=== PATIENT | female | born 1985 | race Caucasian/White ===

== ENCOUNTER 2024-06-27 19:30 | Emergency (ER) | payer OTHER, SELFPAY ==
[2024-06-27 19:31] VITALS: BMI 24.5
[2024-06-27 19:33] VITALS: BP 152/116
[2024-06-27 19:51] LABS: % Basophils 0.8 % (0-2); % Eosinophils 0.6 % (0-6); % Immature Granulocytes 0.3 % (0-0.5); % Lymphocytes 35.3 % (20.5-51.1); % Monocytes 6.2 % (1.7-9.3); % Neutrophils 56.8 % (42.2-75.2); Absolute Basophils 0.1 10^3/uL (0-0.2); Absolute Lymphocytes 2.6 10^3/uL (1.2-3.4); Absolute Monocytes 0.5 10^3/uL (0.1-0.6); Absolute Neutrophils 4.1 10^3/uL (1.4-6.5); Hematocrit 33.8 % (37.0-47.0); Hemoglobin 11.6 g/dL (12.0-16.0); Mean Corp Hgb Conc. 34.3 g/dL (33.0-37.0); Mean Corpuscular Hgb 28.7 pg (27.0-31.0); Mean Corpuscular Volume 83.7 fL (81.0-99.0); Mean Platelet Volume 10.3 fL (7.4-10.4); Nucleated Red Blood Cells % 0 %; Platelet Count 279 10^3/uL (130-400); Red Blood Cell Count 4.04 10^6/uL (4.20-5.40); Red Cell Dist. Width 13.2 % (11.5-14.5); White Blood Cell Count 7.2 10^3/uL (4.8-10.8)
[2024-06-27 20:03] LABS: ALT (SGPT) 12 U/L (0-35); AST (SGOT) 21 U/L (14-36); Albumin 4.8 g/dl (3.5-5.0); Alkaline Phosphatase 82 U/L (38-126); Blood Urea Nitrogen 13 mg/dl (7-17); Calcium 9.9 mg/dl (8.4-10.2); Carbon Dioxide 25 mmol/L (22-30); Chloride 101 mmol/L (98-107); Glucose 96 mg/dl (70-99); Magnesium 1.9 mg/dl (1.6-2.3); Potassium 3.7 mmol/L (3.5-5.1); Sodium 136 mmol/L (135-145); Total Bilirubin 0.5 mg/dl (0.2-1.3); Total Protein 7.1 g/dl (6.3-8.2); eGFR > 60.00
[2024-06-27 20:15] LABS: Troponin I < 0.012 ng/ml
[2024-06-27 20:34] LABS: TSH 2.41 uIU/ml (0.47-4.68)
[2024-06-27 21:51] VITALS: BP 113/89
--- NOTE | 2024-06-27 22:01 | ED.GENMED ---
History of Present Illness
General
Chief Complaint: Heart Rate Problem
Source: patient
Exam Limitations: none
Time Seen by Provider: 06/27/24 21:51
Nursing documentation reviewed up to this point in time: agreed with
History of Present Illness
History of Present Illness:
39-year-old female with a past medical history of anxiety who presents to the emergency room for evaluation of palpitations. Patient reports onset of symptoms yesterday and she says that she had intermittent episodes throughout the day. She says
that today she was able to go to work but was having intermittent symptoms again and this afternoon when she was watching her son's exercise class she began to have more intense symptoms associated with dizziness and she says a caaqov-teze-gdvyv
heart rate in the 90s. She came to the emergency room to be evaluated. She has not had any syncope. She denies any chest pain. She says she might of had some mild shortness of breath earlier this evening but denies any dyspnea here. She denies
any GI issues. She denies any recent illness, cough, fever. She denies any vaginal bleeding, last menstrual period was roughly 10 days ago. She says she does not take any medications. She denies smoking history, drug or alcohol history. She
denies any family history of cardiac issues.
Review of Systems
Review of Systems
All Other Systems: ROS reviewed and negative except as documented in HPI and ROS
Constitutional: Denies fever
EENT: Denies sore throat or runny nose
Respiratory: Reports trouble breathing; Denies cough
Cardiac: Reports palpitations; Denies chest pain, diaphoresis or syncope
ABD/GI: Denies abdominal pain, nausea, vomiting or diarrhea
: Denies flank pain or bleeding
Musculoskeletal: Denies neck pain or back pain
Neurological: Reports dizzy; Denies headache
Phy Exam
Physical Exam
Physical Exam:
General: Awake, alert, oriented x3; no acute distress
Head: Normocephalic, atraumatic
Eyes: Conjunctiva normal, pupils equal round and reactive to light bilaterally
Throat: Airway intact, handling secretions
Neck: Trachea midline, supple without meningismus
Lungs: Clear to auscultation bilaterally, no wheezing, rales, rhonchi
Heart: Regular rate and rhythm, no murmurs, gallops, or rubs
Abd: Soft, non distended, nontender
Neuro: Cranial nerves grossly intact, speech fluid
Skin: no rash
Extremities: No edema in extremities, equal pulses in all extremities
Scores
Heart Failure Risk
Heart Failure Risk Score: Not Applicable
Heart Score for Chest Pain Patients
STEMI patient?: Not applicable
Withdrawal Assessment of Alcohol
Withdrawal Assessment Completed?: Not applicable
Course
Orders/Labs/Results
Orders:
Orders
06/27/24 19:36
Electrocardiogram (*1) Urgent
Reason for Study: Bradycardia / Tachycardia
06/27/24 19:37
EKG- Treatment ONCE
06/27/24 19:44
Complete Blood Count/With Diff Urgent
Comprehensive Metabolic Panel Urgent
HCG, Serum Qualitative Screen Urgent
Comment: ADD ON
Magnesium Urgent
TSH Urgent
Troponin I Urgent
06/27/24 21:52
Test Result ONCE
CR Chest - 2 Views Urgent
Comment:
Reason For Exam: sob
06/27/24 21:53
Add On- LAB Urgent
Tests Added?: HCG QUAL
06/27/24 22:03
D-Dimer Urgent
Abnormal Lab Results
06/27/24
19:44
RBC 4.04 L 10^6/uL
(4.20-5.40)
Hgb 11.6 L g/dL
(12.0-16.0)
Hct 33.8 L %
(37.0-47.0)
06/27/24 19:44
06/27/24 19:44
Vital Signs
Initial and Last Documented VS:
Initial Vital Signs
Temp Pulse Resp BP Pulse Ox
36.8 C 113 20 152/116 99
06/27/24 19:33 06/27/24 19:33 06/27/24 19:33 06/27/24 19:33 06/27/24 19:33
Last Documented Vital Signs
Temp Pulse Resp BP Pulse Ox
36.8 C 87 16 112/80 100
06/27/24 19:33 06/27/24 22:30 06/27/24 22:30 06/27/24 22:05 06/27/24 22:30
MDM/Problems Addressed
Differential Diagnosis Includes:
PACs/PVCs, atrial fibs/flutter, SVT, anxiety, PE, pericarditis/myocarditis, hyperthyroidism
MDM/Problems Addressed:
39-year-old female presents for evaluation of palpitations that started yesterday and have been intermittent since then; she reports this evening had a higher than usual heart rate in the 90s some mild shortness of breath and dizziness. No symptoms
here in the ER at present. Was hypertensive and tachycardic in triage, vital signs normalized by my assessment. Physical exam as above. EKG shows sinus rhythm with no ectopy, no Brugada, no delta wave, normal QTc. Plan to check labs including a
CBC and CMP, troponin, D-dimer. Will check thyroid studies. Check chest x-ray. Will monitor on telemetry and reassess after the above.
Initial labs reviewed: CBC shows marginal anemia otherwise unremarkable. CMP no clinically significant abnormalities. Troponin undetectable. Thyroid studies normal. D-dimer pending. Chest x-ray pending. Continue to monitor.
D-dimer negative. Chest x-ray reviewed by me shows no acute disease. Vitals have remained stable here in the emergency room. No events noted on monitor. No clear indication for admission to the hospital at this point in time; she is
nonsymptomatic at present, reports peak heart rate in the 90s on her Apple Watch while she was symptomatic. Will refer to cardiology for further follow-up and consideration of Holter monitor. Patient comfortable with this plan. Spoke about return
precautions all questions answered.
Chronic conditions affecting care:
Anxiety
Acute Exacerbation and/or Progression of Chronic Illness:
Acutely hypertensive improved without invention continue to monitor but no additional antihypertensive indicated at present�likely anxiety related
Acute Exacerbation and/or Progression of Chronic Illness: HTN
*Radiology
Radiology exam reviewed: preliminary read by ED provider
*Pulse Oximetry
Patient hypoxic: no
*EKG
Interpreted by ED Provider?: Yes
Heart Rate: 79
Rate: normal
Rhythm: sinus
[place]: normal axis
Interval: normal interval
QRS Pattern: normal QRS
Ischemia: no ischemia
*Critical Care Note
Total Time (30-74mins, 75-104mins- exclusive of procedures): Not Applicable
Data Reviewed
Review of Other/Old Records Reveals: Labs
Source: patient and spouse
ED Attending Note
-
Portions of this chart may have been created with voice recognition software.� Occasional wrong word or��sound alike� substitutions may have occurred due to the inherent limitations of voice recognition software.
Discharge Plan
Departure
Patient Disposition: Home (Routine Discharge)
Date of Disposition: 06/27/24
Time of Disposition: 23:01
Patient with high blood pressure during this ER visit?: Yes
Discharge Problem:
Heart palpitations, Hypertension
Instructions: Palpitations (DC)
Prescriptions:
No Action
[id number] fum-folic 1 EACH tablet
1 ea PO DAILY
bupropion HCl 150 MG tablet sustained-release 12 hr
150 mg PO DAILY 0RF
acetaminophen 325 MG tablet
650 mg PO Q4HPRN PRN (Reason: mild pain) 0RF
ibuprofen 600 MG tablet
600 mg PO Q4HPRN PRN (Reason: moderate pain/cramps) 0RF
enoxaparin 40 MG/0.4 ML syringe
40 mg SC QPM 0RF
Referrals:
Jama Lazo MD [Active] - Call in 1-3 days for appt
Adrianne Barnett CRNP [Family Provider] - Follow up in 5-7 days
Activity Restrictions/Additional Instructions:
Thank you for visiting the Emergency Department at [facility].
1. Please schedule a follow up appointment as directed. Call first thing tomorrow morning to make an appointment.
2. If indicated, please take your medications as instructed and indicated on discharge paperwork.
3. If any of your symptoms do not improve, or persist, or become more severe within 6-12 hours, please return to the emergency department for further care.
4. Please return to the emergency department if you develop a headache, neck pain/stiffness, fever greater than 100.4F, chest pain, shortness of breath, persistent nausea, vomiting, slurred speech, difficulty walking, numbness/tingling, weakness,
signs of infection or any other symptoms that are worrisome to you.
Please call [phone] if you have any questions.
Interventions
Interventions:
*Risk Screen - Suicide Last Done: 06/27/24 19:33
*General Assessment Last Done: 06/27/24 19:33
*Neglect/Abuse Screening Last Done: 06/27/24 19:33
ED- Fall Risk Assessment Last Done: 06/27/24 21:39
*ED COVID-19 Vaccine History Last Done: 06/27/24 21:39
ED- Cardiac Assessment Last Done: 06/27/24 21:39
ED- Pulmonary Assessment Last Done: 06/27/24 21:39
Discharge Date and Time
Print Language: BENGALI
[2024-06-27 22:05] VITALS: BP 112/80
[2024-06-27 22:23] LABS: HCG, Serum Qualitative Screen Negative
[2024-06-27 22:59] LABS: D-Dimer < 0.27 ug/mlFEU (0.00-0.50)
[2024-06-27 23:00] VITALS: BP 105/76
== END 2024-06-27 23:11 | disposition home or self-care (01) ==
LOC: EMR 19:30
PROVIDERS: EMERGENCY PHYSICIAN Emergency Medicine; FAMILY PHYSICIAN Nurse Practitioner Adult Health
DX: R00.2 Palpitations (principal); I10 Essential (primary) hypertension; F41.9 Anxiety disorder, unspecified
CPT/HCPCS: 99283; 71046; 80053; 83735; 84443; 84484; 84703; 85025; 85379; 93005

== ENCOUNTER → 2025-04-12 06:39 | Outpatient (REF) | payer OTHER, SELFPAY | LOC: PAVMRI 06:39 | PROVIDERS: ATTENDING PHYSICIAN Nurse Practitioner Adult Health | DX: G43.019 Migraine without aura, intractable, without status migrainosus (principal); Z80.8 Family history of malignant neoplasm of other organs or systems | CPT/HCPCS: 70551 ==

== ENCOUNTER 2025-07-27 06:02 | Emergency (ER) | payer OTHER, SELFPAY ==
[2025-07-27 06:05] VITALS: BP 126/82
--- NOTE | 2025-07-27 06:20 | ED.GENMED ---
History of Present Illness
General
Chief Complaint: Bowel Problem
Source: patient
Exam Limitations: none
Time Seen by Provider: 07/27/25 06:09
Nursing documentation reviewed up to this point in time: agreed with
History of Present Illness
History of Present Illness:
40-year-old female with a past medical history of migraines, anxiety, IBS who presents to the ER for evaluation of abdominal discomfort and constipation. Patient reports that she has been dealing with constipation x 8 days�she reports last bowel
movement was 8 days ago. She says that even before her last bowel movement she was having intermittent constipation and diarrhea. She says that because of her recent constipation she has been trying mewl-qaa-rpxzoci therapies including fiber
supplements and suppositories none of which have provided any relief. Last night took iltc-jid-cwkguhl laxative again and began to have nausea and says that she was vomiting throughout the evening. Came to the ER for evaluation. She still has
some mild nausea but no additional vomiting this morning. She reports abdominal discomfort which she says is intermittent crampy sensation. She denies any fever or chills. She has had reasonable appetite and p.o. intake she says. She denies any
prior surgeries in her abdomen. She said this morning she has associated headache that she says she is prone to migraines and this feels similar. She did take a dose of sumatriptan for headache prior to coming to the ER.
Review of Systems
Review of Systems
All Other Systems: ROS reviewed and negative except as documented in HPI and ROS
Constitutional: Denies fever
Respiratory: Denies trouble breathing
Cardiac: Denies chest pain
ABD/GI: Reports abdominal pain, nausea, vomiting and constipated
: Denies flank pain
Musculoskeletal: Denies neck pain or back pain
Neurological: Reports headache; Denies dizzy
Phy Exam
Physical Exam
Physical Exam:
General: Awake, alert, oriented x3; no acute distress
Head: Normocephalic, atraumatic
Eyes: Conjunctiva normal, sclera anicteric
Throat: Airway intact, handling secretions
Neck: Trachea midline, supple without meningismus
Lungs: Breathing comfortably without distress; no tachypnea or hypoxia
Heart: Regular rate
Abd: Normal and active bowel sounds; soft, non distended, mildly tender left lower quadrant
Neuro: Grossly intact
Skin: No rash noted
Extremities: Warm and well-perfused
Scores
Heart Failure Risk
Heart Failure Risk Score: Not Applicable
Heart Score for Chest Pain Patients
STEMI patient?: Not applicable
Withdrawal Assessment of Alcohol
Withdrawal Assessment Completed?: Not applicable
Course
Orders/Labs/Results
Orders:
Orders
07/27/25 06:19
CT Abd/pelvis W Iv Cont Urgent
Comment:
Reason For Exam: abd pain, constipation, vomiting
07/27/25 06:20
Test Result ONCE
07/27/25 06:24
0.9% Sodium Chloride 1000 ml [Nss] 1,000 ml IV BOLUS
07/27/25 06:27
Complete Blood Count/With Diff Urgent
Comprehensive Metabolic Panel Urgent
HCG, Serum Qualitative Screen Urgent
Magnesium Urgent
TSH Reflex To Free T4 Urgent
07/27/25 07:33
Enema- Treatment ONCE
Type: Soap Suds
07/27/25 09:26
Ondansetron Orally Disint [Zofran Odt (Orally Disintegrating)] 4 mg PO NOW STA
Abnormal Lab Results
07/27/25
06:27
RBC 4.05 L 10^6/uL
(4.20-5.40)
Hct 35.7 L %
(37.0-47.0)
Magnesium 2.4 H mg/dl
(1.6-2.3)
07/27/25 06:27
07/27/25 06:27
Vital Signs
Initial and Last Documented VS:
Initial Vital Signs
Temp Pulse Resp BP Pulse Ox
36.6 C 94 16 126/82 100
07/27/25 06:05 07/27/25 06:05 07/27/25 06:05 07/27/25 06:05 07/27/25 06:05
Last Documented Vital Signs
Temp Pulse Resp BP Pulse Ox
36.6 C 94 16 126/82 100
07/27/25 06:05 07/27/25 06:05 07/27/25 06:05 07/27/25 06:05 07/27/25 06:21
MDM/Problems Addressed
Differential Diagnosis Includes:
Constipation, IBS, bowel obstruction, electrolyte derangement, hypothyroidism
MDM/Problems Addressed:
40-year-old female presents to the ER for evaluation of constipation and abdominal discomfort�last bowel movement she says was over a week ago. Has tried different laxatives, fiber supplements, suppositories. Last night had some vomiting after
taking additional oral laxative. Came to the ER for assessment. Vitals and exam as above. Plan to check labs including a CBC and a CMP, TSH with reflex T4. Will check hCG. Will check CT abdomen pelvis to rule out signs of obstruction. Provide
IV fluids. Monitor closely reassess after the above.
Labs reviewed: CBC and CMP clinically significant abnormalities. Thyroid studies unremarkable. CT reviewed by me no obstruction noted�final radiology report pending. Plan to proceed with enema.
Patient was able to have a bowel movement after enema and reports relief after BM. Final radiology report reviewed shows constipation no other acute abnormalities. She does have some mild residual nausea was given Zofran. We talked about next
steps will plan to give magnesium citrate to use at home and advised her to increase fluid intake and fiber intake in her diet as well as add exercise to prevent constipation in the future. Provided GI referral for follow-up. She feels very
comfortable with this plan. All questions answered.
*Radiology
Radiology exam reviewed: radiology read reviewed
*Pulse Oximetry
SaO2: 100
Oxygen Mode of Delivery: Room air
Patient hypoxic: no (100%)
*Critical Care Note
Total Time (30-74mins, 75-104mins- exclusive of procedures): Not Applicable
Data Reviewed
Source: patient and records
ED Attending Note
-
Portions of this chart may have been created with voice recognition software.� Occasional wrong word or��sound alike� substitutions may have occurred due to the inherent limitations of voice recognition software.
Discharge Plan
Departure
Patient Disposition: Home (Routine Discharge)
Date of Disposition: 07/27/25
Time of Disposition: 09:28
Patient with high blood pressure during this ER visit?: No
Discharge Problem:
Constipation
Instructions: Constipation, Adult (DC)
Prescriptions:
New
ondansetron 4 mg tablet,disintegrating
4 mg PO TIDPRN PRN (Reason: nausea/vomiting) Qty: 10 0RF
No Action
vit 96-iron fum-folic 1 EACH tablet
1 ea PO DAILY
bupropion HCl 150 MG tablet sustained-release 12 hr
150 mg PO DAILY 0RF
acetaminophen 325 MG tablet
650 mg PO Q4HPRN PRN (Reason: mild pain) 0RF
ibuprofen 600 MG tablet
600 mg PO Q4HPRN PRN (Reason: moderate pain/cramps) 0RF
enoxaparin 40 MG/0.4 ML syringe
40 mg SC QPM 0RF
Referrals:
Shanda Colindres MD [Active, Gastroenterology] - Call in 1-3 days for appt
Activity Restrictions/Additional Instructions:
Thank you for visiting the Emergency Department at [facility].
1. Please schedule a follow up appointment as directed. Call first thing tomorrow morning to make an appointment.
2. If indicated, please take your medications as instructed and indicated on discharge paperwork.
3. If any of your symptoms do not improve, or persist, or become more severe within 6-12 hours, please return to the emergency department for further care.
4. Please return to the emergency department if you develop a headache, neck pain/stiffness, fever greater than 100.4F, chest pain, shortness of breath, persistent nausea, vomiting, slurred speech, difficulty walking, numbness/tingling, weakness,
signs of infection or any other symptoms that are worrisome to you.
Please call [phone] if you have any questions.
Interventions
Interventions:
*Risk Screen - Suicide Last Done: 07/27/25 06:05
*General Assessment Last Done: 07/27/25 06:05
*Neglect/Abuse Screening Last Done: 07/27/25 06:05
GZ-Gjwrnw-Rzhavevczk Assessment Last Done: 07/27/25 06:42
Discharge Date and Time
Print Language: NORWEGI[place]
[2025-07-27] MEDS: NSS 1000 IV (06:36)
[2025-07-27 06:46] LABS: Hematocrit 35.7 % (37.0-47.0); Hemoglobin 12.0 g/dL (12.0-16.0); Mean Corp Hgb Conc. 33.6 g/dL (33.0-37.0); Mean Corpuscular Volume 88.1 fL (81.0-99.0); Nucleated Red Blood Cells % 0 %; Platelet Count 274 10^3/uL (130-400); Red Cell Dist. Width 12.7 % (11.5-14.5)
[2025-07-27 06:57] LABS: HCG, Serum Qualitative Screen Negative
[2025-07-27 07:13] LABS: ALT (SGPT) 15 U/L (0-35); AST (SGOT) 22 U/L (14-36); Albumin 4.7 g/dl (3.5-5.0); Alkaline Phosphatase 55 U/L (38-126); Blood Urea Nitrogen 14 mg/dl (7-17); Calcium 9.6 mg/dl (8.4-10.2); Carbon Dioxide 26 mmol/L (22-30); Chloride 107 mmol/L (98-107); Glucose 98 mg/dl (70-99); Magnesium 2.4 mg/dl (1.6-2.3); Potassium 4.2 mmol/L (3.5-5.1); Sodium 139 mmol/L (135-145); Total Protein 7.2 g/dl (6.3-8.2); eGFR > 60.00
[2025-07-27] MEDS: ZOFRAN ODT (ORALLY DISINTEGRATING) 4 MG PO (09:31)
[2025-07-27] MEDS: CITROMA 300 ML PO (09:31)
[2025-07-27 09:40] VITALS: BP 117/62
== END 2025-07-27 09:40 | disposition home or self-care (01) ==
LOC: EMR 06:02
PROVIDERS: EMERGENCY PHYSICIAN Emergency Medicine
DX: K59.00 Constipation, unspecified (principal); G43.909 Migraine, unspecified, not intractable, without status migrainosus; K58.9 Irritable bowel syndrome, unspecified; F41.9 Anxiety disorder, unspecified
CPT/HCPCS: 99284; 96360; 74177; 80053; 83735; 84443; 84703; 85025; Q9967